=== PATIENT | female | born 1955 | race Caucasian/White ===

== ENCOUNTER 2022-03-21 16:12 | Emergency (ER) | payer OTHER ==
[~2022-03-21] VITALS: Ht 172.7 cm; Wt 114.8 kg
--- NOTE | 2022-03-21 16:20 | NUR ---
Placed in room 5 . Placed on stencil maker, blood pressure machine and pulse oximeter. To gown for exam. Side rails up. Report given to AMBAR VILLAFUERTE.
[2022-03-21 16:25] VITALS: BP_SYST 126
[2022-03-21] MEDS ORDERED: LORazepam 2 MG/ML VIAL IM ONE (16:45)
--- NOTE | 2022-03-21 17:24 | NUR ---
FIRST CONTACT WITH PT. PT REPORTS FEELING VERY ANXIOUS AFTER NOT TAKING HER DEPRESSION MEDICATION X4 DAYS. PT STATES SHE WANTED TO STOP TAKING THE MEDICATION. DENIES SI/HI. PT IS COOPERARIVE. NO DISTRESS NOTED. WILL CONT TO MONITOR
--- NOTE | 2022-03-21 18:24 | NUR ---
DC INSTRUCTIONS GIVEN AND DISCUSSED BY DR ELISE. NO DISTRESS NOTED. PT AMBULATORY WITH STEADY GAIT
== END 2022-03-21 18:25 | disposition home or self-care (01) ==
LOC: SED 16:12
DX: R00.2 Palpitations (principal); F41.9 Anxiety disorder, unspecified; Z79.899 Other long term (current) drug therapy
CPT/HCPCS: 99283; 96372; J2060